=== PATIENT | female | born 1980 | race Caucasian/White ===

== ENCOUNTER 2017-10-03 09:25 | Emergency (ER) | payer MEDICAID ==
[~2017-10-03] VITALS: Ht 157.5 cm; Wt 65.8 kg
[2017-10-03 09:32] VITALS: BP_SYST 11; BP_SYST 111; BP_DIAS 53
--- NOTE | 2017-10-03 09:34 | NUR ---
patient provided with ua cup. patient aware of need of urine sample. patient states unable to provide one at this time.
--- NOTE | 2017-10-03 09:36 | NUR ---
PT AMB TO BED 11
--- NOTE | 2017-10-03 09:37 | NUR ---
37/F BIB C/O constipation x 3 days WITH RECTAL PAIN . 12 wks. LMP 06/26/17. Patient denies any abd pain or vaginal bleeding.DENIES N/V/D; SKIN IS PINK/WARM/DRY; AAOX4 WITH EVEN AND STEADY GAIT; LUNGS CLEAR BL; HR EVEN AND REGULAR; PT DENIES ANY FEVER, CP, SOB, OR COUGH AT THIS TIME; PATIENT STATES PAIN OF 9/10 AT THIS TIME; VSS; PATIENT POSITIONED FOR COMFORT; HOB ELEVATED; BEDRAILS UP X2; BED DOWN. ER MD MADE AWARE OF PT STATUS.
--- NOTE | 2017-10-03 10:13 | NUR ---
[id number] RLQ. Addendum: 10/03/17 at [email or web address] GRIFFIN.
[2017-10-03] MEDS ORDERED: ONDANSETRON 4 MG ODT PO ONE (10:20)
--- NOTE | 2017-10-03 10:26 | NUR ---
Dr. Odom evaluating patient at bedside.
[2017-10-03 10:39] VITALS: BP 108/68
--- NOTE | 2017-10-03 10:39 | NUR ---
Patient discharged with v/s stable. Written and verbal after care instructions given and explained. Patient alert, oriented and verbalized understanding of instructions. Ambulatory with steady gait. All questions addressed prior to discharge. ID band removed. Patient advised to follow up with PMD. Rx of ZOFRAN & MIRALAX given. Patient educated on indication of medication including possible reaction and side effects. Opportunity to ask questions provided and answered.
== END 2017-10-03 10:39 | disposition home or self-care (01) ==
LOC: MED 09:25
DX: O26.891 Other specified pregnancy related conditions, first trimester (principal); K59.00 Constipation, unspecified; Z3A.12 12 weeks gestation of pregnancy
CPT/HCPCS: 99283; S0119

== ENCOUNTER 2023-01-13 17:33 | Emergency (ER) | payer MEDICAID ==
[~2023-01-13] VITALS: Ht 160 cm; Wt 72.6 kg
[2023-01-13 17:47] VITALS: BP 153/112; PULSE 92; RESP 14; TEMP 97.3; O2SAT 100
[2023-01-13] MEDS ORDERED: MORPHINE SULFATE 4 MG/ML SYR IVP ONE (18:25)
[2023-01-13 18:41] LABS: APPEARANCE,URINE CLEAR (CLEAR); BILIRUBIN,URINE NEGATIVE (NEGATIVE); BLOOD, URINE 3+ (NEGATIVE); COLOR,URINE YELLOW (YELLOW); LEUKOCYTE ESTERASE ,URINE NEGATIVE (NEGATIVE); NITRITE, URINE NEGATIVE (NEGATIVE); PROTEIN,URINE 2+ (NEGATIVE); UGLUCOSE NEGATIVE (NEGATIVE); UROBILINOGEN,URINE 0.2 EU/dL (0.2 - 1)
[2023-01-13 19:01] LABS: BACTERIA,URINE None Seen /HPF (None Seen); RBC,URINE TOO NUMEROUS TO COUN /HPF (0-5); SQUAMOUS EPITHELIAL CELL,UR None Seen /LPF (0-3 (FEW)); WBC,URINE NONE SEEN /HPF (0-5)
[2023-01-13 19:03] LABS: BASOPHILS # (AUTO) 0.2 K/uL (0.00-0.22); EOSINOPHILS # (AUTO) 0.1 K/uL (0-0.4); EOSINOPHILS % (AUTO) 0.8 % (0.0-4.0); HEMATOCRIT 39.1 % (36-48); HEMOGLOBIN 12.9 g/dL (12.0-16.0); LYMPHOCYTES # (AUTO) 2.6 K/uL (2.5-16.5); LYMPHOCYTES % (AUTO) 17.4 % (20.5-51.1); MEAN CORPUSCULAR HEMOGLOBIN 29 pg (27-31); MEAN CORPUSCULAR HGB CONC 33 g/dL (33-37); MONOCYTES # (AUTO) 0.6 K/uL (0.8-1.0); MONOCYTES % (AUTO) 4.1 % (1.7-9.3); NEUTROPHILS # (AUTO) 11.4 K/uL (1.8-7.7); NEUTROPHILS % (AUTO) 76.7 % (42.2-75.2); PLATELET COUNT (AUTO) 229 K/uL (140-450); RED BLOOD CELL COUNT(AUTO) 4.44 MIL/uL (4.20-5.40); WHITE BLOOD COUNT (AUTO) 14.9 K/uL (4.8-10.8)
[2023-01-13 19:26] LABS: ALBUMIN 4.3 g/dL (3.4-5.0); ANION GAP 14.9 (8-16); CALCIUM 9.2 mg/dL (8.5-10.1); CARBON DIOXIDE 23.5 mmol/L (21-32); CREATININE 1.1 mg/dL (0.6-1.3); POTASSIUM 3.4 mmol/L (3.5-5.1); TOTAL BILIRUBIN 0.7 mg/dL (0.0-1.0); TOTAL PROTEIN, SERUM 8.5 g/dL (6.4-8.2)
[2023-01-13 19:59] VITALS: BP 112/61
[2023-01-13] MEDS ORDERED: NACL 0.9% 1,000 ML IV ONE (20:10)
[2023-01-13] MEDS ORDERED: KETOROLAC 30 MG/ML VIAL IVP ONE (20:15)
[2023-01-13] MEDS ORDERED: TAMS0.4C96 PO (20:40)
[2023-01-13] MEDS ORDERED: HYDR-5191 PO (20:40)
[2023-01-13] MEDS ORDERED: IBUP-2213 PO (20:40)
[2023-01-13 21:30] VITALS: PULSE 66; RESP 12; O2SAT 100
== END 2023-01-13 21:30 | disposition home or self-care (01) ==
LOC: MED 17:33
DX: N20.0 Calculus of kidney (principal); Z79.899 Other long term (current) drug therapy
CPT/HCPCS: 36415; 74176; 80053; 81001; 81025; 83690; 85025; 96361; 96374; 96375; 99285; J1885; J2270; J7030; 81002